=== PATIENT | female | born 1940 ===

== ENCOUNTER → 2017-11-03 | Outpatient (CLI) | payer OTHER | END | disposition home or self-care (01) | LOC: NUCLEAR 08:39 | DX: M81.0 Age-related osteoporosis without current pathological fracture (principal) ==

== ENCOUNTER → 2017-11-27 | Outpatient (CLI) | payer OTHER | END | disposition home or self-care (01) | LOC: NUCLEAR 08:31 | DX: I67.89 Other cerebrovascular disease (principal); Z86.73 Personal history of transient ischemic attack (TIA), and cerebral infarction without residual deficits; E11.9 Type 2 diabetes mellitus without complications; I10 Essential (primary) hypertension; E78.4 Other hyperlipidemia ==

== ENCOUNTER → 2017-11-28 | Outpatient (CLI) | payer OTHER | END | disposition home or self-care (01) | LOC: NUCLEAR 08:00 | DX: M79.662 Pain in left lower leg (principal); E11.9 Type 2 diabetes mellitus without complications; I10 Essential (primary) hypertension; Z86.73 Personal history of transient ischemic attack (TIA), and cerebral infarction without residual deficits ==

== ENCOUNTER 2017-12-01 11:41 | Outpatient (CLI) | payer OTHER | END 2017-12-01 12:00 | disposition home or self-care (01) | LOC: NUCLEAR 11:41 | DX: I73.9 Peripheral vascular disease, unspecified (principal); I10 Essential (primary) hypertension; E11.9 Type 2 diabetes mellitus without complications; Z86.73 Personal history of transient ischemic attack (TIA), and cerebral infarction without residual deficits; M79.662 Pain in left lower leg ==

== ENCOUNTER 2021-01-18 10:01 | Outpatient (CLI) | payer OTHER | END 2021-01-18 10:02 | disposition home or self-care (01) | LOC: NUCLEAR 10:01 | DX: M79.661 Pain in right lower leg (principal); M79.662 Pain in left lower leg; R22.42 Localized swelling, mass and lump, left lower limb; I87.2 Venous insufficiency (chronic) (peripheral); Z86.73 Personal history of transient ischemic attack (TIA), and cerebral infarction without residual deficits; Z09 Encounter for follow-up examination after completed treatment for conditions other than malignant neoplasm ==